=== PATIENT | male | born 1960 | race Caucasian/White ===

== ENCOUNTER 2016-10-13 09:25 | Day surgery (SDC) | payer BC ==
[~2016-10-13 09:25] MED LIST: Lactated Ringers 1,000 ML IV SCH; Lidocaine 1%/Sod Bicarbonate in NS 8.4% 1 ML Syringe IV PRN; Sodium Chloride 0.9% 10 ML Syringe FLUSH PRN
--- NOTE | 2016-10-13 10:05 | PCM.PREANE ---
Preanesthetic Assessment - Anesthesia/Transfusion/Family Hx Anesthesia History: Prior Anesthesia Without Reaction Family History of Anesthesia Reaction: No Transfusion History: No Prior Transfusion(s) - Review of Systems General: No Symptoms Pulmonary: No Symptoms Cardiovascular: No Symptoms Gastrointestinal: No symptoms Neurological: No Symptoms Other: Reports: None - Physical Assessment NPO Status Date: 10/12/16 NPO Status Time: 23:30 O2 Sat by Pulse Oximetry: 99 Respiratory Rate: 16 Vital Signs: Last Vital Signs Temp 97.0 F 10/13/16 09:30 Pulse 62 10/13/16 09:30 Resp 16 10/13/16 09:30 BP 140/98 H 10/13/16 09:30 Pulse Ox 99 10/13/16 09:30 Height: 5 ft 10 in Weight: 85.729 kg ASA Class: 2 Mental Status: Alert & Oriented x3 Airway Class: Mallampati = 1 Dentition: Reports: Normal Dentition Thyro-Mental Finger Breadths: 3 Mouth Opening Finger Breadths: 3 ROM/Head Extension: Full Lungs: Clear to auscultation, Normal respiratory effort Cardiovascular: Regular Rate, Regular Rhythm - Allergies Allergies/Adverse Reactions: Allergies Allergy/AdvReac Type Severity Reaction Status Date / Time No Known Allergies Allergy Verified 10/12/16 15:06 - Blood Blood Available: No - Acknowledgements Anesthesia Type Planned: MAC Pt an Appropriate Candidate for the Planned Anesthesia: Yes Alternatives and Risks of Anesthesia Discussed w Pt/Guardian: Yes Pt/Guardian Understands and Agrees with Anesthesia Plan: Yes PreAnesthesia Questionnaire HEENT History: Reports: Sinusitis, Other (see below) Other HEENT History: pharyngitis, eustachian tube dysfunction Cardiovascular History: Reports: High cholesterol (borderline), Hypertension Respiratory History: Reports: PE Gastrointestinal History: Reports: None Genitourinary History: Reports: None [employer]ITION MARKETING MANAGER History: Reports: None Musculoskeletal History: Reports: Other (see below) Other Musculoskeletal History: 5th finger fracture Neurological History: Reports: None Psychiatric History: Reports: None Endocrine/Metabolic History: Reports: None Hematologic History: Reports: None Immunologic History: Reports: None Oncologic (Cancer) History: Reports: Leukemia, Other (see below) Other Oncologic History: hairy cell leukemia Dermatologic History: Reports: Other (see below) Other Dermatologic History: actinic keratosis - Past Surgical History Head Surgeries/Procedures: Reports: None Musculoskeletal Surgical History: Reports: Other (see below) (wrist- repair blood vessel) Oncologic Surgical History: Reports: Bone marrow aspiration - History Comment History Comment: baby asa - SUBSTANCE USE Smoking Status *Q: Never Smoker Tobacco Use Within Last Twelve Months: No Second Hand Smoke Exposure: Yes Days Per Week of Alcohol Use: 3 Number of Drinks Per Day: 4 Total Drinks Per Week: 12 Recreational Drug Use History: No - HOME MEDS Home Medications: Home Meds Lisinopril [Prinivil] 30 mg PO DAILY 10/12/16 [History] - CURRENT (IN HOUSE) MEDS Current Meds: Current Medications Lactated Ringer's (Ringers, Lactated) 1,000 mls @ 125 mls/hr IV ASDIRECTED SHARON Lidocaine/Sodium Bicarbonate (Buffered Lidocaine 1% In Ns 8.4%) 0.25 ml IV ONETIME PRN PRN Reason: Prior to IV Start Sodium Chloride (Saline Flush) 10 ml FLUSH ASDIRECTED PRN PRN Reason: Keep Vein Open
[2016-10-13] MEDS ORDERED: Propofol 200 MG/20 ML SDV ONE (10:52)
[2016-10-13] MEDS ORDERED: fentaNYL 100 MCG/2 ML SDV ONE (10:52)
[2016-10-13] MEDS ORDERED: Midazolam 1 MG/ML 2 ML SDV ONE (10:53)
[2016-10-13] MEDS ORDERED: Lidocaine 1% 4 ML ONE (10:54)
--- NOTE | 2016-10-13 11:29 | PCM.OPNOTE ---
- General Post-Op/Procedure Note Date of Surgery/Procedure: 10/13/16 Operative Procedure(s): colonoscopy Findings: 1. right prostate nodule 2. anal tag Pre Op Diagnosis: screening Post-Op Diagnosis: 1. anal tag. 2. right prostate nodule Anesthesia Technique: MAC, Moderate sedation Primary Surgeon: Cristiano Limon Pathology: none EBL in mLs: 0 Complications: None Condition: Good Free Text/Narrative:: After adequate IV sedation and analgesia was obtained the patient was placed on his left side. Perianal inspection revealed an anal tag. Digital rectal examination revealed a possible right prostate nodule. A lubricated colonoscope was inserted into the rectum then advanced under direct vision with air insufflation as necessary to the cecum without difficulty. The bowel preparation was excellent. The cecum, right colon, transverse, and descending colons were endoscopically normal with no mass lesions or inflammatory changes seen. The rectum was unremarkable in both views. Air was removed, as I finished the procedure, which he tolerated well. [employer] Inspector photographs were taken for the patient and for the record.
[2016-10-13 11:42] VITALS: BP 124/80
== END 2016-10-13 12:00 | disposition home or self-care (01) ==
LOC: JD.SDS 09:25
PROVIDERS: ATTEND Surgery
DX: Z12.11 Encounter for screening for malignant neoplasm of colon (principal); K64.4 Residual hemorrhoidal skin tags; N40.2 Nodular prostate without lower urinary tract symptoms; E78.2 Mixed hyperlipidemia; I10 Essential (primary) hypertension; Z79.899 Other long term (current) drug therapy; Z98.890 Other specified postprocedural states; Z80.42 Family history of malignant neoplasm of prostate
CPT/HCPCS: 45378; J2250; J3010; J7120; 00810; J2704